=== PATIENT | male | born 1965 ===

== ENCOUNTER 2017-12-22 21:30 | Outpatient (REF) | payer BC, SELFPAY ==
[2017-12-22 22:24] LABS: Anion Gap 13.7 mmol/L (3-11); BUN 20 mg/dL (7-18); CO2 19.3 mmol/L (21.0-32.0); CREATININE 0.94 mg/dL (0.70-1.30); Calcium 8.9 mg/dL (8.5-10.1); Chloride 107 mmol/L (98-107); Cholesterol 246 mg/dL (50-200); Glucose 88 mg/dL (70-100); HDL Cholesterol 78 mg/dL (40-60); LDL CHOLESTEROL 130 mg/dL (<100); Potassium 4.1 mmol/L (3.5-5.1); Sodium 140 mmol/L (136-145); Triglyceride 297 mg/dL (30-150)
== END 2017-12-22 21:31 ==
LOC: NCHCN 21:30
PROVIDERS: PCP Family Medicine; Visit Provider Family Medicine
DX: I10 Essential (primary) hypertension (principal); E78.1 Pure hyperglyceridemia
CPT/HCPCS: 80048; 80061; 83721

== ENCOUNTER 2019-04-11 16:34 | Outpatient (REF) | payer BC, SELFPAY ==
[2019-04-11 21:36] LABS: HCT 44.2 % (40.0-50.0); HGB 15.5 g/dL (13.5-17.5); Mean Corp. HGB Concentration 35.1 g/dL (32.0-36.0); Mean Corpuscular Hemoglobin 32.6 pg (27.0-33.0); Mean Corpuscular Volume 93.1 fL (80-95); Mean Platelet Volume 9.8 fL (8.0-11.0); Platelet Count 275 x1000/uL (130-400); RBC 4.75 m/cumm (4.50-6.00); White Blood Cell Count 7.04 k/cumm (4.4-10.8)
[2019-04-11 22:02] LABS: ALT 33 U/L (16-63); AST 22 U/L (15-37); Albumin 3.9 g/dL (3.4-5.0); Alkaline Phosphatase 78 U/L (46-116); Anion Gap 16.3 mmol/L (3-11); BUN 20 mg/dL (7-18); Bilirubin, Total 1.1 mg/dL (0.2-1.0); CO2 19.7 mmol/L (21.0-32.0); Calcium 9.4 mg/dL (8.5-10.1); Chloride 103 mmol/L (98-107); Cholesterol 256 mg/dL (<200); Glucose 87 mg/dL (74-106); HDL Cholesterol 59 mg/dL (40-60); Potassium 3.6 mmol/L (3.5-5.1); Sodium 139 mmol/L (136-145); Total Protein 7.6 g/dL (6.4-8.2); Triglyceride 515 mg/dL (<150)
[2019-04-11 22:56] LABS: LDL CHOLESTEROL 111 mg/dL (<100)
== END 2019-04-11 16:54 ==
LOC: NCHCN 16:34
PROVIDERS: PCP Family Medicine; Visit Provider Family Medicine
DX: I10 Essential (primary) hypertension (principal); F10.20 Alcohol dependence, uncomplicated; Z13.220 Encounter for screening for lipoid disorders
CPT/HCPCS: 80053; 80061; 83721; 85027

== ENCOUNTER 2020-01-29 17:45 | Outpatient (REF) | payer BC, SELFPAY | END 2020-01-29 18:05 | LOC: NCHCN 17:45 | PROVIDERS: PCP Family Medicine; Visit Provider Nurse Practitioner Family | DX: M1A.0790 Idiopathic chronic gout, unspecified ankle and foot, without tophus (tophi) (principal); M70.42 Prepatellar bursitis, left knee | CPT/HCPCS: 87070; 87205 ==

== ENCOUNTER 2021-01-24 14:44 | Outpatient (REF) | payer BC, SELFPAY ==
[2021-01-24 21:20] LABS: Hemoglobin A1C 5.1 % (<5.7)
[2021-01-24 21:30] LABS: ALT 29 U/L (16-63); AST 20 U/L (15-37); Albumin 3.7 g/dL (3.4-5.0); Alkaline Phosphatase 89 U/L (46-116); Anion Gap 8.3 mmol/L (3-11); BUN 21 mg/dL (7-18); CO2 21.7 mmol/L (21.0-32.0); CREATININE 0.9 mg/dL (0.70-1.30); Calcium 9.2 mg/dL (8.5-10.1); Calculated LDL 92 mg/dL (<100); Chloride 108 mmol/L (98-107); Cholesterol 241 mg/dL (<200); Glucose 92 mg/dL (74-106); HDL Cholesterol 71 mg/dL (40-60); Potassium 4.3 mmol/L (3.5-5.1); Sodium 138 mmol/L (136-145); Total Protein 7.4 g/dL (6.4-8.2); Triglyceride 392 mg/dL (<150)
[2021-01-24 21:54] LABS: Uric Acid 9.7 mg/dL (3.5-7.2)
== END 2021-01-24 14:45 | disposition home or self-care (01) ==
LOC: NCHCN 14:44
PROVIDERS: PCP Family Medicine; Visit Provider Family Medicine
DX: Z00.00 Encounter for general adult medical examination without abnormal findings (principal); E78.1 Pure hyperglyceridemia; M10.00 Idiopathic gout, unspecified site; I10 Essential (primary) hypertension; F10.20 Alcohol dependence, uncomplicated
CPT/HCPCS: 80053; 80061; 83036; 84550

== ENCOUNTER 2021-02-14 12:13 | Outpatient (REF) | payer BC, SELFPAY ==
--- NOTE | 2021-02-14 11:00 | SKI_PTH ---
PATIENT: Eusebio Chung LOC: [facility]#:[id number] AGE/SX: 55/M ROOM: RE02/14/[address]: Darshana Anthony : 1965 BED: DIS: 02/14/2021 SPEC #: [id number] RECD: 02/17/21 12:46 STATUS: JED REVu #: [id number] HAN: 02/14/21 11:[address]: Darshana Anthony DEPT: Surgical Specimen RECD BY: Xi Palencia Tissues: 1 - SKIN BIOPSY(SHAVE/PUNCH) Procedures: IMMUNOPEROXIDASE STAIN SKIN LEVEL 4 Comments: [id number]
== END 2021-02-14 12:14 | disposition home or self-care (01) ==
LOC: NCHCN 12:13
PROVIDERS: PCP Family Medicine; Visit Provider Family Medicine
DX: D22.5 Melanocytic nevi of trunk (principal)
CPT/HCPCS: 88305; 88361

== ENCOUNTER 2025-02-07 18:34 | Outpatient (REF) | payer OTHER, SELFPAY ==
[2025-02-07 22:16] LABS: ALT 21 U/L (16-63); AST 21 U/L (15-37); Albumin 3.9 g/dL (3.4-5.0); Alkaline Phosphatase 94 U/L (46-116); Anion Gap 11.4 mmol/L (3-11); BUN 17 mg/dL (7-18); Bilirubin, Total 1.6 mg/dL (0.2-1.0); CO2 23.6 mmol/L (21.0-32.0); Calcium 9.3 mg/dL (8.5-10.1); Chloride 105 mmol/L (98-107); Estimated GFR 104.83 (mL/min/1.73m2); Glucose 74 mg/dL (74-106); Potassium 3.8 mmol/L (3.5-5.1); Sodium 140 mmol/L (136-145); Total Protein 7.4 g/dL (6.4-8.2); Uric Acid 3.7 mg/dL (3.5-7.2)
[2025-02-07 22:29] LABS: Hemoglobin A1C 4.8 % (<5.7)
[2025-02-07 23:03] LABS: Calculated LDL 80 mg/dL (<100); Cholesterol 221 mg/dL (<200); Folate 10.3 ng/mL (8.6-20.0); HDL Cholesterol 81 mg/dL (>or=40); Triglyceride 301 mg/dL (<150); Vitamin B12 278 pg/mL (193-986)
[2025-02-08 17:45] LABS: PSA, Screening 5.4 ng/mL (<=4.5)
== END 2025-02-07 18:35 | disposition home or self-care (01) ==
LOC: NCHCN 18:34
PROVIDERS: PCP Family Medicine; Visit Provider Family Medicine
DX: G62.1 Alcoholic polyneuropathy (principal); E78.5 Hyperlipidemia, unspecified; Z12.5 Encounter for screening for malignant neoplasm of prostate; F10.288 Alcohol dependence with other alcohol-induced disorder; Z13.1 Encounter for screening for diabetes mellitus; Z87.39 Personal history of other diseases of the musculoskeletal system and connective tissue
CPT/HCPCS: 80053; 80061; 84153; 82607; 82746; 83036; 84550